=== PATIENT | female | born 1965 | race Caucasian/White ===

== ENCOUNTER 2019-07-18 11:44 | Emergency (ER) | payer OTHER, SELFPAY ==
--- NOTE | 2019-07-18 11:49 | ED.GENADULT ---
HPI - General Adult General Chief complaint: Upper Respiratory Infection Stated complaint: SINUS CONGESTION/FALL/R SHOULDER INJURY Time Seen by Provider: 07/18/19 12:20 Source: patient Mode of arrival: ambulatory Limitations: no limitations History of Present Illness HPI narrative: 54-year-old female patient presents to the [facility] with complaints of right shoulder pain cold symptoms. Patient states that she fell about a week ago onto her right shoulder after tripping over her duffel bag. Patient states that she thought it was just bruised but states that with time it has been getting worse. Patient states that now she has trouble raising her right arm. Patient states that the pain does go up to her right side of her neck. Patient states she has been taking aspirin for the pain. Patient also states that she has had some sinus and cold symptoms for about a month now with pressure to the face. Denies any fevers that she has is aware of. Patient states she has had some congestion, runny nose, slight cough and little bit of a sore throat. Denies any chest pain or shortness of breath. Patient states she has tried multiple azly-aes-ocjczsk medications including Coricidin, Mucinex, Tylenol Cold and sinus without any relief. Related Data Home Medications Medication Instructions Recorded Confirmed amlodipine 07/18/19 atorvastatin 07/18/19 bupropion HCl PO 07/18/19 ergocalciferol (vitamin D2) 07/18/19 [Vitamin D2] gabapentin 07/18/19 hydrochlorothiazide 07/18/19 metoprolol tartrate 07/18/19 Allergies Allergy/AdvReac Type Severity Reaction Status Date / Time lisinopril Allergy Severe Verified 07/14/18 11:14 naproxen Allergy Mild Verified 07/14/18 11:14 NSAIDS (Non-Steroidal Allergy Unknown Anaphylactic Verified 07/14/18 11:14 Anti-Inflamma Shock Review of Systems Review of Systems: Narrative: CONSTITUTIONAL: Denies fever, chills, or sweats. EYES: Denies visual changes, redness, or discharge. ENT: Positive rhinorrhea, congestion, sore throat, denies otalgia. CARDIOVASCULAR: Denies chest pain, palpitations, or edema. RESPIRATORY: Positive mild nonproductive cough denies dyspnea. GASTROINTESTINAL: Denies abdominal pain, nausea, vomiting, or diarrhea. GENITOURINARY: Denies dysuria or hematuria. SKIN: Denies rash or itching. MUSCULOSKELETAL: Denies back pain, joint pain, or myalgia. Positive right shoulder pain and neck pain NEUROLOGIC: Positive headache, numbness, or weakness. PSYCHIATRIC: Denies anxiety or depression. [facility] Past Medical History Medical History (Updated 07/18/19 @ 12:29 by IBRAHIMA Askew) Hypercholesterolemia Hypertension Left humeral fracture Osteoporosis Pneumonia Surgical History Surgical History (Updated 07/18/19 @ 11:51 by IBRAHIMA Askew) H/O thyroidectomy Comments At the time of my signature I agree with nursing past medical history, surgical, social, and family history. There is no relevant family history pertinent to the presenting complaint. Exam Narrative: Exam Narrative: GENERAL: Well-appearing, well-nourished, and in no acute distress. HEAD: Normocephalic, atraumatic. Tenderness noted to maxillary sinuses on palpation EYES: PERRLA and EOMI. ENT: Nares with erythema and edema noted bilaterally, no rhinorrhea or epistaxis. Mucous membranes moist. Posterior pharynx with no erythema, tonsillar margin, exudates or lesions present. Bilateral TMs are clear no erythema or foreign bodies in the canal. NECK: Supple, no lymphadenopathy. No surface trauma, soft tissue and muscle tenderness with obvious spasm noted to the lateral side of the right neck. Trachea midline. No subq emphysema or crepitus. No sobeida tenderness, step-offs or deformity to firm Palpation at posterior midline. FROM without limitation or pain, normal flexion, extension,Lateral bending, rotation, and axial load. CHEST: Clear to auscultation. No respiratory distress. HEART: Regular rate and rh
[2019-07-18 11:59] VITALS: BP 169/83; PULSE 129; RESP 16; TEMP 36.9; O2SAT 100
== END 2019-07-18 12:41 | disposition home or self-care (01) ==
PROVIDERS: Emergency Provider Nurse Practitioner Family
DX: M62.838 Other muscle spasm (principal); J01.00 Acute maxillary sinusitis, unspecified; E78.00 Pure hypercholesterolemia, unspecified; I10 Essential (primary) hypertension; M81.0 Age-related osteoporosis without current pathological fracture
CPT/HCPCS: 99213; G0463

== ENCOUNTER → 2020-07-15 09:24 | Outpatient (CLI) | payer OTHER, SELFPAY ==
--- NOTE | ~2020-07-15 | XR_ITS ---
EXAMINATION: XR hand LT min 3V, XR wrist LT min 3V EXAM DATE: 07/15/2020 09:59 INDICATION: No known recent injury provided at this time. Left hand and wrist pain x 1 month. Pain is lateral between 1st-2nd metacarpal/carpal area. TECHNIQUE: Left hand frontal, lateral and oblique projections obtained and reviewed. Left wrist fron mel, frontal with ulnar deviation, oblique and lateral projections obtained and reviewed. There is n o prior study for comparison. FINDINGS: Left metacarpal bones are unremarkable. Left wrist scapholunate joint space is maintained . There is mild 2nd-5th DIP joint primary osteoarthritis. Otherwise joint spaces appear maintained. There are no bony erosions identified. There are no acute fractures or dislocations identified. Ther e is no subcutaneous gas. The soft tissue is unremarkable. There are no radiopaque foreign bodies. IMPRESSION: Mild left DIP joints osteoarthritis. Reviewed, dictated and finalized at location B. ERER IMPRESSION: Mild left DIP joints osteoarthritis.
== END ==
PROVIDERS: Visit Provider Nurse Practitioner Adult Health
DX: M19.032 Primary osteoarthritis, left wrist (principal)
CPT/HCPCS: 73110; 73130

== ENCOUNTER 2021-05-01 10:32 | Emergency (ER) | payer OTHER, SELFPAY ==
--- NOTE | ~2021-05-01 | XR_ITS ---
XR clavicle LT DATE: 05/01/2021 11:01 INDICATION: Fall. Left clavicle pain TECHNIQUE: AP and angled AP views of left clavicle COMPARISON: None FINDINGS: There is a comminuted completely inferiorly displaced fracture of the lateral shaft of the left clavicle. Normal alignment at the acromioclavicular and glenohumeral joints. Diffuse osteopenia. IMPRESSION: Comminuted inferiorly displaced fracture of the lateral shaft of left clavicle Reviewed, dictated and finalized at location A. CAR SWITCHER IMPRESSION: Comminuted inferiorly displaced fracture of the lateral shaft of le ft clavicle
[2021-05-01 10:50] VITALS: BP 141/66; PULSE 67; RESP 16; TEMP 36.8; O2SAT 98
--- NOTE | 2021-05-01 11:35 | ED.FALL ---
HPI - Fall General Chief Complaint: Fall Stated Complaint: fall Source: patient Mode of arrival: ambulatory Limitations: no limitations History of Present Illness HPI Narrative: Patient is a 56-year-old female who presents complaining of left shoulder pain. Patient reports getting up in the middle the night and tripping on a blanket and falling onto the left shoulder onto carpet. Patient reports pain in the left shoulder, denies numbness or tingling of extremity. Denies LOC. Denies all other complaints at this time. complaint: fall Related Data Home Medications Medication Instructions Recorded Confirmed denosumab 60 mg/mL subcutaneous 60 mg SUBCUT [id number] 08/25/20 03/17/21 syringe Allergies Allergy/AdvReac Type Severity Reaction Status Date / Time lisinopril Allergy Severe swollen Verified 03/30/21 10:45 tongue naproxen Allergy Severe Anaphylaxis Verified 03/30/21 10:45 NSAIDS (Non-Steroidal Allergy Unknown Anaphylactic Verified 03/30/21 10:45 Anti-Inflamma Shock Review of Systems Review of Systems: CONSTITUTIONAL: Denies fever, chills, or sweats. EYES: Denies visual changes, redness, or discharge. ENT: Denies rhinorrhea, congestion, sore throat, or otalgia. CARDIOVASCULAR: Denies chest pain, palpitations, or edema. RESPIRATORY: Denies cough or dyspnea. GASTROINTESTINAL: Denies abdominal pain, nausea, vomiting, or diarrhea. GENITOURINARY: Denies dysuria or hematuria. SKIN: Denies rash or itching. MUSCULOSKELETAL: Denies back pain, reports left shoulder pain NEUROLOGIC: Denies headache, numbness, dizziness, or weakness. PSYCHIATRIC: Denies anxiety or depression. [facility] Past Medical History Medical History Chronic sinusitis History of lower leg fracture Hypercholesterolemia Hypertension Left humeral fracture Mixed hyperlipidemia Osteoarthritis involving multiple joints on both sides of body Osteoporosis Osteoporosis Pneumonia Primary hypertension Tobacco abuse Surgical History Surgical History H/O thyroidectomy Social History Social History Smoking packs per day: 1 Smoking cigarettes per day: 20.0 Years smoked: 35 Smoking pack-years: 35.00 Smoking status: Current every day smoker Tobacco type: cigarettes Alcohol intake: current Drinks per week: 3 Substance use: never Substance use type: does not use Comments At the time of signature, I have reviewed and agree with nursing past medical, surgical, social, and family history unless otherwise noted. Please see nursing chart for further information. There is no relevant family history pertinent to the presenting complaint. Exam Narrative: GENERAL: Well-appearing, well-nourished, and in no acute distress. HEAD: Normocephalic, atraumatic. EYES: EOMI. No redness or drainage. Conjunctiva are normal. ENT: Mucous membranes pink and moist. CHEST: No respiratory distress. HEART: Regular rate and rhythm. No murmur appreciated. Normal peripheral pulses. EXTREMITIES: Decreased range of motion, deformity noted at left clavicle. Distal sensation intact, good capillary refill SKIN: Warm, dry, no rash. NEURO: No focal deficits. Alert and oriented x3. Gait steady. PSYCH: Normal affect. No signs of depression or anxiety. Course Vital Signs Vital signs: Vital Signs Temperature 36.8 C 05/01/21 10:50 Pulse Rate 67 05/01/21 10:50 Respiratory Rate 16 05/01/21 10:50 Blood Pressure 141/66 H 05/01/21 10:50 Pulse Oximetry 98 05/01/21 10:50 Temperature 36.8 C 05/01/21 10:50 Pulse Rate 67 05/01/21 10:50 Respiratory Rate 16 05/01/21 10:50 Blood Pressure 141/66 H 05/01/21 10:50 Pulse Oximetry 98 05/01/21 10:50 Reviewed MDM - Fall MDM Narrative Medical decision making narrative: Patient has short of clavicle. Discussed with Randall
== END 2021-05-01 12:15 | disposition home or self-care (01) ==
PROVIDERS: Emergency Provider Nurse Practitioner; PCP Family Medicine
DX: S42.022A Displaced fracture of shaft of left clavicle, initial encounter for closed fracture (principal); W01.0XXA Fall on same level from slipping, tripping and stumbling without subsequent striking against object, initial encounter; F17.210 Nicotine dependence, cigarettes, uncomplicated; E78.00 Pure hypercholesterolemia, unspecified; I10 Essential (primary) hypertension; E78.2 Mixed hyperlipidemia; M19.90 Unspecified osteoarthritis, unspecified site; M81.0 Age-related osteoporosis without current pathological fracture
CPT/HCPCS: 73000; 99214; G0463

== ENCOUNTER 2023-12-22 09:58 | Emergency (ER) | payer OTHER, SELFPAY ==
[2023-12-22 10:07] VITALS: BP 158/100; PULSE 77; RESP 16; TEMP 37.6; O2SAT 98
--- NOTE | 2023-12-22 10:17 | ED.EYEPROB ---
HPI - Eye Problem General Chief complaint: Eye Problems Stated complaint: Left Eye Irritation Time Seen by Provider: 12/22/23 10:17 Source: patient Mode of arrival: ambulatory Limitations: no limitations History of Present Illness HPI Narrative: 58-year-old female presented for complaint of left eye pain. Onset 3 days. Endorses the left eye is red, swollen, draining, feels like something is in it. Eye crusted shut this morning. Denies injury. Says the family has pink eye. Rates eye pain 12/16. Endorses blurred vision from left eye. MD chief complaint: eye pain Related Data Allergies Allergy/AdvReac Type Severity Reaction Status Date / Time lisinopril Allergy Severe swollen Verified 12/22/23 10:12 tongue naproxen Allergy Severe Anaphylaxis Verified 12/22/23 10:12 NSAIDS (Non-Steroidal Allergy Unknown Anaphylactic Verified 12/22/23 10:12 Anti-Inflamma Shock Review of Systems Review of Systems: CONSTITUTIONAL: Denies body aches, fever, chills EYES:Endorses swelling, itching, redness and pain to left eye; FB sensation, blurred vision Denies photophobia ENT: Denies rhinorrhea, congestion, sore throat, or otalgia. CARDIOVASCULAR: Denies chest pain, palpitations RESPIRATORY: Denies cough or dyspnea. NEUROLOGIC: reports headache, denies numbness, tingling, or weakness. All systems reviewed & are unremarkable except as noted in HPI and below PMFSH Past Medical History Medical History Chronic sinusitis History of lower leg fracture Hypercholesterolemia Hypertension Left humeral fracture Mixed hyperlipidemia Osteoarthritis involving multiple joints on both sides of body Osteoporosis Osteoporosis Pneumonia Primary hypertension Tobacco abuse Surgical History Surgical History H/O thyroidectomy Social History Social History Smoking packs per day: 1 Smoking cigarettes per day: 20.0 Years smoked: 35 Smoking pack-years: 35.00 Smoking status: Current every day smoker Tobacco type: cigarettes Alcohol intake: current Drinks per week: 3 Substance use: never Substance use type: does not use Lack of Transportation: No Lack of Food: Never True Current Housing: I Have Housing Concerned About Future Housing: No Difficulty Paying Gas/Electric Bills: No Difficulty Paying for Meds: No Currently Unemployed: No Education: Associate Degree Difficulty w/ Childcare or Family Care: No Gender identity (if verbalized by the patient): Female Spiritual care concerns: No Agree to blood products: Yes Comments At time of signature, I have reviewed and agree with nursing past medical, surgical, social and family history unless otherwise noted. Please see nursing chart for further information. There is no relevant family history pertinent to the presenting complaint Exam Narrative: GENERAL: appears older than stated age EYES: Left conjunctival injection, purulent drainage, mild chemosis noted; mild eye lid swelling/redness extending to the cheek. PERRLA, EOMI. Lid eversion shows no FB. ENT: Mucous membranes pink and moist. No rhinorrhea. CHEST: Clear to auscultation. HEART: Regular rate and rhythm. SKIN: Warm, dry NEURO: No focal deficits. Alert and oriented x3 Course Course Emergency Course: Patient is aware of diagnosis, understands and agrees to treatment plan. Anticipatory guidance given. Patient agrees to follow-up as directed and is aware of reasons to seek care at the emergency department. Portions of this record may have been created with voice recognition software Level of Care: Express Care Visit Vital Signs Vital signs: Vital Signs Temperature 99.6 F 12/22/23 10:07 Pulse Rate 77 12/22/23 10:07 Respiratory Rate 16 12/22/23 10:07 Blood Pressure 158/100 H 12/22/23 1
== END 2023-12-22 10:35 | disposition home or self-care (01) ==
PROVIDERS: Emergency Provider Nurse Practitioner Family; PCP Family Medicine
DX: H10.9 Unspecified conjunctivitis (principal); F17.210 Nicotine dependence, cigarettes, uncomplicated; E78.00 Pure hypercholesterolemia, unspecified; I10 Essential (primary) hypertension; E78.2 Mixed hyperlipidemia; M15.9 Polyosteoarthritis, unspecified; M81.0 Age-related osteoporosis without current pathological fracture
CPT/HCPCS: 99213; G0463

== ENCOUNTER 2024-03-20 12:13 | Emergency (ER) | payer OTHER, SELFPAY ==
[2024-03-20 12:23] VITALS: BP 141/55; PULSE 70; RESP 19; TEMP 37.2; O2SAT 100
--- NOTE | 2024-03-20 13:01 | ED_ITS ---
HPI - URI/Sore Throat General Chief Complaint: Upper Respiratory Infection Stated Complaint: cough,no energy,chest hurts Time Seen by Provider: 03/20/24 13:02 Source: patient, RN notes reviewed and old records reviewed Mode of arrival: ambulatory Limitations: no limitations History of Present Illness HPI Narrative: Patient presents with complaints of week-long history of productive cough. Patient is a smoker with history of COPD. She has tried multiple narw-bbk-iessyeo cough medicines, says that she is getting worse instead of better. She has noticed some wheezing, but denies any outright shortness of breath. She does report fever at onset of her illness, has associated body aches. Related Data Allergies Allergy/AdvReac Type Severity Reaction Status Date / Time lisinopril Allergy Severe swollen Verified 03/20/24 12:16 tongue naproxen Allergy Severe Anaphylaxis Verified 03/20/24 12:16 NSAIDS (Non-Steroidal Allergy Unknown Anaphylactic Verified 03/20/24 12:16 Anti-Inflamma Shock Review of Systems Review of Systems: All systems reviewed & are unremarkable except as noted in HPI and below Constitutional: Constitutional: Reports as per HPI, Reports no additional constitutional complaints, Reports body ache(s), Reports fever(s) and Reports lethargy ENT: Reports system reviewed and no additional complaints, except as documented Cardiovascular: Cardiovascular: Reports no additional cardiovascular complaints Respiratory: Respiratory: Reports no additional respiratory complaints, Reports change in phlegm color, Reports chest congestion, Reports cough and Reports wheezing Gastrointestinal: Gastrointestinal: Reports no additional gastrointestinal complaints PMFSH Past Medical History Medical History (Reviewed 01/26/24 @ 10:05 by Stella Alanis [facility]) Chronic sinusitis History of lower leg fracture Hypercholesterolemia Hypertension Left humeral fracture Mixed hyperlipidemia Osteoarthritis involving multiple joints on both sides of body Osteoporosis Osteoporosis Pneumonia Primary hypertension Tobacco abuse Surgical History Surgical History H/O thyroidectomy Social History Social History Smoking packs per day: 1 Smoking cigarettes per day: 20.0 Years smoked: 35 Smoking pack-years: 35.00 Smoking status: Current every day smoker Tobacco type: cigarettes Alcohol intake: current Drinks per week: 3 Substance use: never Substance use type: does not use Lack of Transportation: No Lack of Food: Never True Current Housing: I Have Housing Concerned About Future Housing: No Difficulty Paying Gas/Electric Bills: No Difficulty Paying for Meds: No Currently Unemployed: No Education: Associate Degree Difficulty w/ Childcare or Family Care: No Gender identity (if verbalized by the patient): Female Spiritual care concerns: No Agree to blood products: Yes Comments At the time of my signature, I reviewed and agree with the nursing past medical, surgical, social, and family history. There is no relevant family history pertinent to the patient complaint. Exam Const: General: cooperative, no acute distress, alert and awake Orientation/consciousness: oriented to person, oriented to place and oriented to time HENMT: Head: normal to inspection Mouth: Yes moist mucous membranes Resp: Effort & Inspection: normal respiratory effort and able to speak in complete sentences Auscultation: no crackles, no rales, no rhonchi, wheezes s cattered wheezes and diminished lung sounds Cardio: Palpation: normal PMI Rate: regular rate Rhythm: regular rhythm Heart sounds: S1 normal heart sound present and S2 normal heart sound present Neuro: General: oriented to person, oriented to place and oriented to time Cranial nerves: Yes CN's II-XII intact bilaterally Psych: Appearance: grossly normal Thought process: Normal thought process present Insight: Good insight present (Psych) Judgement: Good judgement present (Psych) Course Course Level of Care: Express Care Visit Vital Signs Vital signs: Vital Signs Temperature 98.9 F 03/20/24 12:23 Pulse Rate 70 03/20/24 12:23 Respiratory Rate 19 03/20/24 12:23 Blood Pressure 141/55 H 03/20/24 12:23 Pulse Oximetry 100 03/20/24 12:23 Oxygen Delivery Room Air 03/20/24 12:23 Temperature 98.9 F 03/20/24 12:23 Pulse Rate 70 03/20/24 12:23 Respiratory Rate 19 03/20/24 12:23 Blood Pressure 141/55 H 03/20/24 12:23 Pulse Oximetry 100 03/20/24 12:23 Oxygen Delivery Room Air 03/20/24 12:23 Reviewed MDM - URI/Sore Throat MDM Narrative Medical decision making narrative: History and exam consistent with community-acquired pneumonia that is prevalent in this community at this time. Also element of COPD exacerbation. Start steroids, azithromycin, albuterol. Follow with primary care provider. Emergency department for new or worse symptoms. Discharge instructions reviewed with patient, as well as provided in writing per nursing staff. The instructions also include specific and strict return/GO TO THE ER as well as f/u information. All questions have been answered, and the patient deny any further questions with discharge and discharge plan. Some parts of this dictation were generated by voice recognition software and may contain typographical and/or grammatical inaccuracies. Differential Diagnosis Differential diagnosis: Likely upper respiratory infection, sinusitis, viral infection, bronchitis, influenza and pharyngitis Medical Records Attestation: I reviewed the patient's medical records. Discharge Plan Discharge Clinical Impression: Pneumonia Qualifiers: Pneumonia type: due to unspecified organism Laterality: unspecified laterality Lung location: unspecified part of lung Qualified Code(s): J18.9 - Pneumonia, unspecified organism Patient Disposition: Home, Self-Care Condition: Stable Instructions: Antibiotic Form, Pneumonia (ED) Additional Instructions: Take all medications as prescribed. Follow with primary care provider. Emergency department for new or worse symptoms Patient Language: Lao Prescriptions: New azithromycin 250 mg tablet See Rx Instructions .ROUTE .COMPLEX Qty: 6 0RF Rx Instructions: For 250 mg dose pack: take 500 mg today (day 1), then 250 mg for 4 days (days 2-5) prednisone 50 mg tablet 50 mg PO DAILY Qty: 5 0RF albuterol sulfate [Ventolin HFA] 90 mcg/actuation HFA aerosol inhaler 2 puff inhalation QID PRN (Reason: shortness of breath or wheezing) Qty: 8.5 0RF No Action alendronate 70 mg tablet 70 mg PO WEEKLY Qty: 12 2RF amlodipine 5 mg tablet 5 mg PO DAILY Qty: 90 3RF simvastatin 20 mg tablet 20 mg PO DAILY Qty: 90 3RF ergocalciferol (vitamin D2) [Vitamin D2] 1,250 mcg (50,000 unit) capsule 50,000 unit PO WEEKLY Qty: 30 3RF metoprolol tartrate 50 mg tablet 50 mg PO BID Qty: 180 3RF Rx Instructions: 50 mg PO twice a day; tramadol 50 mg tablet 50 mg PO Q6H PRN (Reason: pain) Qty: 30 0RF Follow-up/Referrals: Joann Barron MD [Primary Care Provider] - 1 Week Stand Alone Forms: Work/School Release IP Time of Disposition: 13:13
== END 2024-03-20 13:20 | disposition home or self-care (01) ==
PROVIDERS: Emergency Provider Nurse Practitioner Family; PCP Family Medicine
DX: J18.9 Pneumonia, unspecified organism (principal); J44.9 Chronic obstructive pulmonary disease, unspecified; I10 Essential (primary) hypertension; E78.2 Mixed hyperlipidemia; F17.210 Nicotine dependence, cigarettes, uncomplicated
CPT/HCPCS: 99213; G0463